=== PATIENT | female | born 1930 | race Caucasian/White ===

== ENCOUNTER 2020-04-14 15:34 | Emergency (ER) | payer MEDICARE ==
[~2020-04-14] VITALS: Ht 162.6 cm; Wt 63.5 kg
[~2020-04-14 15:34] MED LIST: DILTIAZEM ER180 MG PO; LISINOPRIL20 MG PO; WARFARIN SODIUM5 MG PO
[2020-04-14] MEDS ORDERED: WARFARIN SODIU7.5 MG PO (16:42)
== END 2020-04-14 21:08 | disposition short-term general hospital (02) ==
LOC: ED 15:34
DX: S09.90XA Unspecified injury of head, initial encounter (principal); S72.351A Displaced comminuted fracture of shaft of right femur, initial encounter for closed fracture; Z20.828 Contact with and (suspected) exposure to other viral communicable diseases; I49.9 Cardiac arrhythmia, unspecified; Z79.01 Long term (current) use of anticoagulants; W18.09XA Striking against other object with subsequent fall, initial encounter; Z87.891 Personal history of nicotine dependence; Z88.0 Allergy status to penicillin; Z88.2 Allergy status to sulfonamides; Z79.899 Other long term (current) drug therapy
CPT/HCPCS: 51702; 70450; 71045; 72170; 73552; 80053; 81001; 85025; 85610; 99285-25; C9803; J3010; U0003